=== PATIENT | female | born 1965 | race African-American/Black ===

== ENCOUNTER 2019-05-21 05:46 | Inpatient (IN) ==
[2019-05-19 11:50] LABS: Basophils % 0.4 % (0.0-0.8); Eosinophils # 0.2 10*3/uL (0.0-0.87); Eosinophils % 1.7 % (0.00-10.9); Hematocrit 37.8 VOL% (35.7-47.0); Hemoglobin 11.3 GM/DL (12.0-16.0); Immature Granulocytes % 0.5 %; Immature Granulocytes Absolute 0.05 #; Lymphocytes # 2.9 10*3/uL (1.4-4.0); Lymphocytes % 29.3 % (21.3-54.2); Mean Corpuscular HGB Conc 29.9 GM/DL (32-36); Mean Corpuscular Volume 80.9 FL (87-102); Mean Platelet Volume 9.4 FL (9.6-12.0); Monocytes % 7.8 % (1.7-12.7); Neutrophils % 60.3 % (38.7-73.9); Platelet Count 400 T/CUMM (130-400); Red Blood Count 4.67 MC/CUMM (3.8-5.5); Red Cell Distribution Width 14.5 % (9.3-17.3)
[2019-05-19 12:21] LABS: Apearance,Urine Slightly Hazy (Clear); Bacteria,Urine Occasional /HPF (Few); Bilirubin,Urine Negative (Negative); Blood, Urine Negative (Negative); Glucose,Urine (UA) Negative (Negative); Ketones,Urine Negative (Negative); Mucus,Urine Occasional /LPF (Occasional); Nitrite,Urine Negative (Negative); Protein,Urine Negative; RBC,Urine 3 /HPF (0-4); Squamous Epithelial Cell,Urine Occasional /HPF (0-10); Urine Color Yellow (Yellow); Urine Specific Gravity 1.019 (1.001-1.035); Urine Urobilinogen < 2.0 EU/DL (0.2-1.0); WBC,Urine 2 /HPF (0-6)
[2019-05-19 12:27] LABS: Albumin 3.5 G/DL (3.4-5.0); Bilirubin,Total 0.4 MG/DL (0.2-1.0); Calcium 9.6 MG/DL (8.5-10.1); Osmolality,Calculated 274.5 MOS/KG (273-304); Risk Ratio 2.98; Total Protein 7.8 G/DL (6.4-8.3); VLDL CHOLESTEROL 11.4 MG/DL
[2019-05-19 13:14] LABS: HIV Antigen/Antibody Result Nonreactive (Nonreactive)
[2019-05-21] MEDS ORDERED: AMPICILLIN/SULBACTAM 3,000 MG in SODIUM CHLORIDE 0.9% 100 ML IV ONE (06:00)
[2019-05-21] MEDS ORDERED: DIAZEPAM 5 MG TABLET PO ONE (06:53)
[2019-05-21] MEDS ORDERED: FAMOTIDINE 20 MG TABLET PO ONE (06:53)
[2019-05-21] MEDS ORDERED: LACTATED RINGERS 1,000 ML IV SCH ×2 (07:00→07:30)
[2019-05-21] MEDS ORDERED: DIAZEPAM 5 MG TABLET ONE (07:27)
[2019-05-21] MEDS ORDERED: AMPICILLIN/SULBACTAM 3,000 MG VIAL ONE (07:27)
[2019-05-21] MEDS ORDERED: FAMOTIDINE 20 MG TABLET ONE (07:27)
[2019-05-21] MEDS ORDERED: MIDAZOLAM 2 MG/2 ML VIAL ONE (08:50)
[2019-05-21] MEDS ORDERED: DEXAMETHASONE 4 MG/1 ML VIAL ONE (08:50)
[2019-05-21] MEDS ORDERED: ROPIVACAINE 0.5% 30 ML VIAL ONE (08:50)
[2019-05-21] MEDS ORDERED: LIDOCAINE 1% 5 ML VIAL ONE (08:50)
[2019-05-21] MEDS ORDERED: BENZOCAINE/MENTHOL LOZENGE 18/BOX PO PRN (11:24)
[2019-05-21] MEDS ORDERED: ONDANSETRON 4 MG/2 ML VIAL IV PRN ×2 (11:24→12:09)
[2019-05-21] MEDS ORDERED: BISACODYL 10 MG SUPP RECTAL PRN (11:24)
[2019-05-21] MEDS ORDERED: ACETAMINOPHEN 325 MG TABLET PO PRN (11:24)
[2019-05-21 11:44] LABS: Apearance,Urine CLEAR (Clear); Bilirubin,Urine Negative (Negative); Blood, Urine Negative (Negative); Glucose,Urine (UA) Negative (Negative); Ketones,Urine Negative (Negative); Mucus,Urine Occasional /LPF (Occasional); Nitrite,Urine Negative (Negative); Protein,Urine Negative; RBC,Urine 1 /HPF (0-4); Squamous Epithelial Cell,Urine Occasional /HPF (0-10); Urine Color Straw (Yellow); Urine Specific Gravity 1.009 (1.001-1.035); Urine Urobilinogen < 2.0 EU/DL (0.2-1.0); WBC,Urine <1 /HPF (0-6)
[2019-05-21] MEDS ORDERED: HYDROmorphone 2 MG/1 ML VIAL IV PRN ×2 (12:09→13:30)
[2019-05-21] MEDS ORDERED: HYDROmorphone 2 MG/1 ML VIAL ONE (12:10)
[2019-05-21] MEDS ORDERED: ONDANSETRON 4 MG/2 ML VIAL ONE ×2 (12:10→12:25)
[2019-05-21] MEDS ORDERED: SEVOFLURANE 1 UNIT/15 MINUTE INH ONE (12:23)
[2019-05-21] MEDS ORDERED: LIDOCAINE 2% 5 ML VIAL ONE (12:24)
[2019-05-21] MEDS ORDERED: propofoL 200 MG/20 ML VIAL IV ONE (12:24)
[2019-05-21] MEDS ORDERED: fentaNYL 250 MCG/5 ML VIAL ONE (12:24)
[2019-05-21] MEDS ORDERED: GLYCOPYRROLATE 0.4 MG/2 ML VIAL ONE (12:25)
[2019-05-21] MEDS ORDERED: LACTATED RINGERS 1,000 ML IV ONE (12:25)
[2019-05-21] MEDS ORDERED: NEOSTIGMINE 10 MG/10 ML VIAL ONE (12:26)
[2019-05-21] MEDS ORDERED: SUCCINYLCHOLINE 200 MG/10 ML VIAL ONE (12:26)
[2019-05-21] MEDS ORDERED: ROCURONIUM 100 MG/10 ML VIAL IV ONE (12:26)
[2019-05-21] MEDS ORDERED: MEPERIDINE 25 MG/1 ML VIAL ONE (12:50)
[2019-05-21] MEDS: MEPERIDINE 25 MG/1 ML VIAL IV PRN ×2 (12:52→16:57)
[2019-05-21] MEDS ORDERED: KETOROLAC 30 MG/1 ML VIAL IV PRN (14:03)
[2019-05-21] MEDS: LACTATED RINGERS 1,000 ML IV SCH (15:14)
[2019-05-21] MEDS ORDERED: SODIUM CHLORIDE 0.9% 50 ML IV ONE (16:49)
[2019-05-21] MEDS: ceFAZolin 1,000 MG in SYRINGE 1 EACH IV SCH (16:58)
[2019-05-21] MEDS: IBUPROFEN 800 MG TABLET PO PRN (20:16)
[2019-05-22] MEDS: ceFAZolin 1,000 MG in SYRINGE 1 EACH IV SCH (04:20)
[2019-05-22] MEDS ORDERED: ceFAZolin 1,000 MG in SYRINGE 1 EACH IV SCH (04:30)
[2019-05-22] MEDS: IBUPROFEN 800 MG TABLET PO PRN ×2 (05:29→21:44)
[2019-05-22 07:06] LABS: Basophils % 0.1 % (0.0-0.8); Eosinophils % 0.1 % (0.00-10.9); Hematocrit 32.2 VOL% (35.7-47.0); Hemoglobin 9.8 GM/DL (12.0-16.0); Immature Granulocytes % 0.5 %; Immature Granulocytes Absolute 0.07 #; Lymphocytes # 2.2 10*3/uL (1.4-4.0); Lymphocytes % 15.6 % (21.3-54.2); Mean Corpuscular HGB Conc 30.4 GM/DL (32-36); Mean Corpuscular Volume 79.3 FL (87-102); Mean Platelet Volume 9.9 FL (9.6-12.0); Neutrophils % 74.7 % (38.7-73.9); Platelet Count 375 T/CUMM (130-400); Red Blood Count 4.06 MC/CUMM (3.8-5.5); Red Cell Distribution Width 14.6 % (9.3-17.3); White Blood Count 13.8 T/CUMM (4-12)
[2019-05-22] MEDS: DOCUSATE SODIUM 100 MG CAPSULE PO PRN (10:24)
[2019-05-22] MEDS: METOCLOPRAMIDE 10 MG TABLET PO SCH ×3 (10:24→23:29)
[2019-05-22] MEDS: MAGNESIUM HYDROXIDE SUSP 30 ML UDCUP PO PRN ×2 (15:00→23:29)
[2019-05-22] MEDS ORDERED: SIMETHICONE CHEW 80 MG TABLET PO PRN (23:02)
[2019-05-23] MEDS: LACTATED RINGERS 1,000 ML IV SCH ×2 (05:30→05:31)
[2019-05-23 09:11] VITALS: BP 150/65
[2019-05-23] MEDS: METOCLOPRAMIDE 10 MG TABLET PO SCH (09:20)
[2019-05-23] MEDS: DOCUSATE SODIUM 100 MG CAPSULE PO PRN (09:20)
[2019-05-23] MEDS: MAGNESIUM HYDROXIDE SUSP 30 ML UDCUP PO PRN (09:20)
[2019-05-23] MEDS ORDERED: MAGNESIUM CITRATE 300 ML BOTTLE PO ONE (10:31)
== END 2019-05-23 12:50 | disposition home or self-care (01) | DRG 743 ==
LOC: N.OR 05:46 → N.SDSINP 05:47 → EDSTATUS 08:15 → N.SDSINP 11:22 → N.OB 12:55
PROVIDERS: ADMIT Obstetrics & Gynecology; ATTEND Obstetrics & Gynecology